=== PATIENT | male | born 1935 ===

== ENCOUNTER 2016-08-01 06:28 | Day surgery (SDC) | payer MEDICARE ==
--- NOTE | 2016-08-01 07:22 | C.PDOC ---
History Of Present Illness Patient is an 80 y/o M with hx of cholelithiasis, presenting with abdominal discomfort. He reports vague epigastric discomfort x months. He cannot identify any exacerbating or remitting factors. He reports that he was told to come here for further tests on his stomach but cannot provide additional information. Denies abdominal pain, chest pain, shortness of breath, nausea/ vomiting, diarrhea/constipation or urinary complaints. Chart review shows that patient has endoscopy scheduled today with Dr. Nolen. Time Seen by Provider: 08/01/16 07:09 Chief Complaint (Nursing): Abdominal Pain Past Medical History Vital Signs: Last Vital Signs Temp 98.2 F 08/01/16 06:38 Pulse 80 08/01/16 06:38 Resp 14 08/01/16 06:38 BP 152/83 H 08/01/16 06:38 Pulse Ox 97 08/01/16 07:27 Surgical History: Coronary Stent Family History: States: No Known Family Hx - Social History Hx Tobacco Use: No Hx Alcohol Use: No Hx Substance Use: No - Immunization History Hx Tetanus Toxoid Vaccination: No Hx Influenza Vaccination: No Hx Pneumococcal Vaccination: No Review Of Systems Constitutional: Negative for: Fever, Chills ENT: Negative for: Ear Pain Cardiovascular: Negative for: Chest Pain Respiratory: Negative for: Cough, Shortness of Breath, SOB with Excertion, Pleuritic Pain Gastrointestinal: Positive for: Other (abdominal discomfort x months). Negative for: Nausea, Vomiting, Abdominal Pain, Diarrhea, Constipation, Melena, Rectal Pain Genitourinary: Negative for: Dysuria, Frequency, Incontinence, Hematuria, Penile Discharge, Scrotal Pain, Rash, Penile Pain Musculoskeletal: Negative for: Neck Pain Skin: Negative for: Rash Neurological: Negative for: Weakness Psych: Negative for: Depression Physical Exam - Physical Exam Appears: Well, Non-toxic, No Acute Distress Skin: Normal Color, Warm, Dry Head: Atraumatic, Normacephalic Eye(s): bilateral: Normal Inspection, PERRL, EOMI Chest: Symmetrical, No Deformity, No Tenderness Cardiovascular: Rhythm Regular Respiratory: Normal Breath Sounds, No Rales, No Rhonchi, No Wheezing Gastrointestinal/Abdominal: Soft, No Tenderness, No Mass, No Distention Back: Normal Inspection, No CVA Tenderness Extremity: Normal ROM Neurological/Psych: Oriented x3 Gait: Steady ED Course And Treatment - Laboratory Results Result Diagrams: 08/01/16 07:36 08/01/16 07:36 O2 Sat by Pulse Oximetry: 97 Medical Decision Making Medical Decision Making: Patient presenting with abdominal discomfort x months. Non-tender on exam. Well appearing. EKG at triage shows NSR at 80bpm with normal intervals and no ST changes. Call placed to Dr. Nolen who reports that patient is scheduled for endoscopy today and was supposed to come to same day surgery. Requesting labs and NPO and patient sent to endoscopy. He reports that he will follow-up labs and cancel procedure for anything significant abnormality in blood work Disposition - Disposition Disposition: HOSPITALIZED Disposition Time: 07:20 Condition: GOOD - Clinical Impression Clinical Impression: Epigastric pain
[2016-08-01 07:41] LABS: BASO # 0.1 K/uL (0.0-0.2); BASO % 0.9 % (0.0-2.0); EOS # 0.2 K/uL (0.0-0.7); EOS % 3.9 % (0.0-4.0); HEMATOCRIT 41.8 % (35.0-51.0); LYMPH # 1.4 K/uL (1.0-4.3); LYMPH % 24.5 % (20.0-40.0); MEAN CORPUSCULAR HEMOGLOBIN 30.7 pg (27.0-31.0); MEAN CORPUSCULAR HGB CONC 34.1 g/dL (33.0-37.0); MEAN PLATELET VOLUME 9.7 fL (7.2-11.7); MONO # 0.4 K/uL (0.0-0.8); MONO % 6.9 % (0.0-10.0); NRBC % 0.1 % (0.0-2.0); RED CELL DISTRIBUTION WIDTH 13.6 % (11.5-14.5); WHITE BLOOD COUNT 5.8 K/uL (4.8-10.8)
[2016-08-01 07:48] LABS: CHLORIDE 102 mmol/L (98-107); POTASSIUM 3.6 mmol/L (3.6-5.2); SODIUM 140 mmol/L (132-148)
[2016-08-01 07:50] LABS: ALB/GLOB RATIO 1.2 (1.0-2.1); ALKALINE PHOSPHATASE 72 U/L (38-126); AST/SGOT 18 U/L (17-59); BILIRUBIN,TOTAL 1.2 mg/dL (0.2-1.3); CARBON DIOXIDE 29 mmol/L (22-30); GFR AFRICAN-AMERICAN > 60; TOTAL PROTEIN 7.5 g/dL (6.3-8.3)
[2016-08-01 07:51] LABS: ALT/SGPT 21 U/L (21-72); BLOOD UREA NITROGEN 16 mg/dL (9-20); CALCIUM 9.1 mg/dl (8.6-10.4); GLUCOSE,RANDOM 90 mg/dL (75-110); PHOSPHOROUS 2.8 mg/dL (2.5-4.5)
[2016-08-01] MEDS ORDERED: Etomidate 20 mg/10ml Inj IV ONE (09:48)
[2016-08-01] MEDS ORDERED: Propofol 10 mg/ml Inj (20 ML) ONE (09:48)
[2016-08-01] MEDS ORDERED: Lidocaine Hydrochloride 5 ML INJ ONE (09:48)
--- NOTE | 2016-08-01 09:53 | CP.SDSHP ---
Same Day Surgery H & P - History Proposed Procedure: EGD, colonoscopy Pre-Op Diagnosis: loss of appetite, screening - Allergies Allergies: Allergies No Known Allergies Allergy (Verified 08/01/16 09:03) - Physical Exam General Appearance: NAD Vital Signs: Vital Signs 08/01/16 08/01/16 08/01/16 06:38 07:55 08:02 Temperature 98.2 F 98.0 F Pulse Rate 80 70 Respiratory 14 20 Rate Blood Pressure 152/83 H 163/87 H O2 Sat by Pulse 97 98 97 Oximetry 08/01/16 08/01/16 08:30 09:44 Temperature 97 F L 97 F L Pulse Rate 73 73 Respiratory 19 19 Rate Blood Pressure 163/86 H 163/86 H O2 Sat by Pulse 99 99 Oximetry Mental Status: Alert & Oriented x3 Neuro: WNL Heart: WNL Lungs: WNL GI: WNL - {Optional Preform as Required} Abdomen: WNL - Impression Pt. Evaluated Today:Candidate for Anesthesia & Procedure: Yes - Date & Time Date: 08/01/16 Time: 09:53 Short Stay Discharge - Short Stay Discharge Admitting Diagnosis/Reason for Visit: EPIGASTRIC DISCONFORT Disposition: HOME/ ROUTINE
[2016-08-01 11:26] VITALS: BP 146/82; PULSE 60; RESP 15; TEMP 97.1; O2SAT 100
--- NOTE | 2016-08-02 17:13 | CARD ---
APPROVED REPORT EKG Measurement Heart [id number] [id number] <Conclusion> Normal sinus rhythm Normal ECG
== END 2016-08-01 11:20 | disposition home or self-care (01) ==
LOC: C.ER 06:28 → C.ENDO 06:28
PROVIDERS: ATTEND Internal Medicine Gastroenterology
DX: K29.80 Duodenitis without bleeding (principal); K29.70 Gastritis, unspecified, without bleeding; B96.81 Helicobacter pylori [H. pylori] as the cause of diseases classified elsewhere
CPT/HCPCS: 43239; 45330; 80053; 82948; 83690; 83735; 84100; 85025; 85610; 85730; 86850; 86900; 88305; 93005; J2001; J2704

== ENCOUNTER 2017-05-21 19:30 | Emergency (ER) | payer MEDICARE ==
[2017-05-21 20:02] VITALS: RESP 20
[2017-05-21] MEDS ORDERED: Sodium Chloride 0.9% 1,000 ML IV ONE (20:07)
--- NOTE | 2017-05-21 20:07 | C.PDOC ---
History Of Present Illness 81 year old male brought in to the ER by daughter due to refusing to take medications, eat, and drink. Patient has a history of Alzheimers disease. Currently complaining of abdominal discomfort for the past 3 days. No fever, chills, nausea, or vomiting. PMD: Non-CPH Provider Time Seen by Provider: 05/21/17 20:06 Chief Complaint (Nursing): Abdominal Pain History Per: Patient History/Exam Limitations: clinical condition (dementia) Onset/Duration Of Symptoms: Days (x3) Current Symptoms Are (Timing): Still Present Severity: Mild Pain Scale Rating Of: 4 Location Of Pain/Discomfort: Diffuse Radiation Of Pain To:: None Associated Symptoms: denies: Fever, Chills, Nausea, Vomiting Exacerbating Factors: None Alleviating Factors: None Recent travel outside of the [place]: No Additional History Per: Family (daughter) Past Medical History Reviewed: Historical Data, Nursing Documentation, Vital Signs Vital Signs: Last Vital Signs Temp 99.3 F 05/21/17 19:57 Pulse 76 05/21/17 19:57 Resp 20 05/21/17 19:57 BP 147/74 05/21/17 19:57 Pulse Ox 97 05/21/17 21:09 - Medical History PMH: Alzheimer's Disease Surgical History: Coronary Stent Family History: States: No Known Family Hx - Social History Hx Tobacco Use: No Hx Alcohol Use: No Hx Substance Use: No - Immunization History Hx Tetanus Toxoid Vaccination: No Hx Influenza Vaccination: No Hx Pneumococcal Vaccination: No Review Of Systems Constitutional: Negative for: Fever, Chills Gastrointestinal: Positive for: Abdominal Pain, Other (refusing to eat/drink). Negative for: Nausea, Vomiting Physical Exam - Physical Exam Appears: Non-toxic, No Acute Distress Skin: Warm, Dry Head: Normacephalic Eye(s): bilateral: Normal Inspection Oral Mucosa: Dry Chest: Symmetrical Cardiovascular: Rhythm Regular Respiratory: No Rales, No Rhonchi, No Wheezing Gastrointestinal/Abdominal: Soft, Tenderness (Mild mid-epigastric tenderness), No Guarding, No Rebound Back: Normal Inspection Extremity: Normal ROM Extremity: Bilateral: Atraumatic Neurological/Psych: Other (Orientedx2) Gait: Steady ED Course And Treatment - Laboratory Results Result Diagrams: 05/21/17 20:24 05/21/17 20:24 O2 Sat by Pulse Oximetry: 97 (RA) Pulse Ox Interpretation: Normal Progress Note: Ordered labs, EKG, and CT abd/pelvis. Patient given 20 mg Pepcid and started on IV fluids. Reevaluation Time: 00:06 Reassessment Condition: Improved Disposition Counseled Patient/Family Regarding: Studies Performed, Diagnosis, Need For Followup, Rx Given - Disposition Referrals: [facility] [Outside] [facility] [Outside] Disposition: HOME/ ROUTINE Disposition Time: 20:07 Condition: FAIR Prescriptions: Ciprofloxacin [Cipro] 1 tab PO BID #14 tab Instructions: Urinary Tract Infection, Adult (DC) Forms: [employer] (Macedonian) Print Language: MOROCCAN - Clinical Impression Clinical Impression: Abdominal pain, UTI (urinary tract infection) - Scribe Statement The provider has reviewed the documentation as recorded by the Scribe (Damari Ga) Provider Attestation: All medical record entries made by the Scribe were at my direction and personally dictated by me. I have reviewed the chart and agree that the record accurately reflects my personal performance of the history, physical exam, medical decision making, and the department course for this patient. I have also personally directed, reviewed, and agree with the discharge instructions and disposition.
[2017-05-21] MEDS ORDERED: Sodium Chloride 0.9% 1,000 ML ONE (20:25)
[2017-05-21 20:28] LABS: BASO # 0.1 K/uL (0.0-0.2); BASO % 0.4 % (0.0-2.0); EOS % 0.2 % (0.0-4.0); HEMOGLOBIN 13.5 g/dL (12.0-18.0); LYMPH # 1.3 K/uL (1.0-4.3); LYMPH % 9.2 % (20.0-40.0); MEAN CORPUSCULAR HEMOGLOBIN 30.3 pg (27.0-31.0); MEAN CORPUSCULAR HGB CONC 34.6 g/dL (33.0-37.0); MEAN PLATELET VOLUME 9.3 fL (7.2-11.7); MONO # 0.7 K/uL (0.0-0.8); MONO % 4.8 % (0.0-10.0); NEUT # 11.9 K/uL (1.8-7.0); NEUT % 85.4 % (50.0-75.0); PLATELET COUNT 195 K/uL (130-400); RBC 4.47 Mil/uL (4.40-5.90); RED CELL DISTRIBUTION WIDTH 13.5 % (11.5-14.5)
[2017-05-21 20:29] LABS: MEAN CELL VOLUME 87.5 fL (80.0-94.0); WHITE BLOOD COUNT 13.9 K/uL (4.8-10.8)
[2017-05-21 20:36] LABS: INR 1.1; PROTHROMBIN TIME 12.1 SECONDS (9.7-12.2)
[2017-05-21 20:47] LABS: ALB/GLOB RATIO 0.9 (1.0-2.1); ALBUMIN 3.7 g/dL (3.5-5.0); ALT/SGPT 213 U/L (21-72); AST/SGOT 114 U/L (17-59); BLOOD UREA NITROGEN 17 mg/dL (9-20); CALCIUM 9.2 mg/dl (8.6-10.4); GFR AFRICAN-AMERICAN > 60; GFR NON-AFRICAN AMERICAN > 60; LIPASE 68 U/L (23-300)
[2017-05-21] MEDS ORDERED: Iodixanol 320 MG/ML 100 ML BOTTLE IV ONE (21:39)
[2017-05-21 21:48] LABS: BANDS 4 % (0-2); LYMPHOCYTE 9 % (20-40); MONOCYTE 8 % (0-10); NEUTROPHIL 79 % (50-75); PLATELET ESTIMATE NORMAL (NORMAL); TOTAL CELLS COUNTED 100
[2017-05-21 21:49] LABS: HYPOCHROMIC SLIGHT
[2017-05-21 22:49] LABS: SQUAMOUS EPITHIAL 2 /hpf (0-5); URINE BACTERIA MOD (<OCC); URINE BILIRUBIN NEGATIVE (NEGATIVE); URINE BLOOD 1+ (NEGATIVE); URINE CLARITY Hazy (Clear); URINE COLOR Amber (YELLOW); URINE GLUCOSE (UA) NORMAL (Normal); URINE LEUKOCYTE ESTERASE 3+ Leu/uL (Negative); URINE NITRATE POSITIVE (NEGATIVE); URINE PROTEIN 1+ mg/dL (NEGATIVE); WBC CLUMPS FEW /hpf
[2017-05-21] MEDS ORDERED: Piperacillin/Tazobact 3.375 gm 100 ML IVPB STA (23:07)
[2017-05-21] MEDS ORDERED: Piperacillin/Tazobact 3.375 gm 100 ML IVPB ONE (23:21)
--- NOTE | 2017-05-21 23:28 | CT ---
EXAM: CT Abdomen and Pelvis With Intravenous Contrast EXAM DATE/TIME: 05/21/2017 9:00 PM CLINICAL HISTORY: 81 years old, male; Pain; Abdominal pain; Generalized; Additional info: Abd pain, elevated liver enzymes TECHNIQUE: Axial computed tomography images of the abdomen and pelvis with intravenous contrast. All CT scans at this facility use one or more dose reduction techniques, viz.: automated exposure control; ma/kV adjustment per patient size (including targeted exams where dose is matched to indication; i.e. head); or iterative reconstruction technique. Coronal and sagittal reformatted images were created and reviewed. CONTRAST: 100 mL of visipaque 320 administered intravenously. COMPARISON: CT - ABDOMEN,PELVIS W/WO CONTRAST 2013-11-25 09:58 FINDINGS: Cholecystectomy clips are present. The liver is normal. The spleen is normal. The pancreas is normal. There are stable bilateral parapelvic renal cysts better characterized on prior where delayed views were obtained. There is an 8 mm hypoattenuating left renal lesion probable small cyst. The posterior urinary bladder wall is thickened, irregular, and trabeculated similar to prior study although better evaluated on prior as delayed views were obtained. Left sided colonic diverticuli are noted. No evidence of diverticulitis. A normal appendix is identified axial images 93 through 103 coronal images 46 through 49. No aortic aneurysm or dissection. There are degenerative changes in the osseous structures. IMPRESSION: No acute findings. Chronic thickened trabecular urinary bladder wall.
[2017-05-22 00:14] VITALS: BP 134/70; PULSE 69; TEMP 98.7; O2SAT 98
--- NOTE | 2017-05-23 13:22 | CARD ---
APPROVED REPORT EKG Measurement Heart [id number] MD [id number] <Conclusion> Normal sinus rhythm Normal ECG
== END 2017-05-22 00:21 | disposition home or self-care (01) ==
LOC: C.ER 19:30
DX: N39.0 Urinary tract infection, site not specified (principal); R10.13 Epigastric pain
CPT/HCPCS: 74177; 80053; 81001; 82948; 83690; 85025; 85610; 85730; 93005; 96361; 96365; 96375; 99285; J2543; J7040; Q9967

== ENCOUNTER 2018-08-11 14:48 | Emergency (ER) | payer MEDICARE ==
[2018-08-11 15:04] VITALS: BP 173/89; PULSE 83; RESP 20; TEMP 98.4; O2SAT 100
--- NOTE | 2018-08-11 15:34 | C.PDOC ---
History Of Present Illness 82 y/o male brought to ER by EMS for evaluation after he was found wandering in the streets.As per EMS, patient appeared to be confused. Patient denies having any active physical complaints at this time. Past medical records show that patient has history of dementia. Of note, HPI is limited because of patient's clinical condition. Time Seen by Provider: 08/11/18 15:06 Chief Complaint (Nursing): Altered Mental Status History Per: Patient, EMS History/Exam Limitations: Clinical Condition Past Medical History Reviewed: Historical Data, Nursing Documentation, Vital Signs Vital Signs: Last Vital Signs Temp 98.4 F 08/11/18 15:01 Pulse 83 08/11/18 15:01 Resp 20 08/11/18 15:01 BP 173/89 H 08/11/18 15:01 Pulse Ox 100 08/11/18 15:01 Primary Care Provider: FAMILY PROVIDER,NO - Medical History PMH: Alzheimer's Disease, HTN Surgical History: Coronary Stent Family History: States: No Known Family Hx - Social History Hx Tobacco Use: No Hx Alcohol Use: No Hx Substance Use: No - Immunization History Hx Tetanus Toxoid Vaccination: No Hx Influenza Vaccination: No Hx Pneumococcal Vaccination: No Review Of Systems Review Of Systems: ROS cannot be obtained secondary to pt's inabilty to answer questions. Physical Exam - Physical Exam Appears: No Acute Distress, Other (pt is awake,alert, and reading newspaper) Skin: Normal Color, Warm, Dry Head: Atraumatic, Normacephalic Eye(s): bilateral: Normal Inspection Nose: Normal Oral Mucosa: Moist Neck: Supple Chest: Symmetrical Cardiovascular: Rhythm Regular Respiratory: Normal Breath Sounds, No Rales, No Rhonchi, No Wheezing Gastrointestinal/Abdominal: Normal Exam, Soft, No Tenderness, No Guarding, No Rebound Neurological/Psych: Normal Speech, Other (awake,alert) ED Course And Treatment ECG: Interpreted By Me, Viewed By Me Interpretation Of ECG: NSR with no ST/T wave changes and poor trace due to secondary artifact Rate From EC O2 Sat by Pulse Oximetry: 100 (RA) Pulse Ox Interpretation: Normal - Other Rad CXR X-Ray: Viewed By Me, Read By Radiologist Interpretation: Date of service: 08/11/2018. PROCEDURE: CHEST RADIOGRAPH, 1 VIEW. HISTORY: chest pain. COMPARISON: None available. FINDINGS: LUNGS: Clear. PLEURA: No pneumothorax or pleural fluid seen. CARDIOVASCULAR: No aortic atherosclerotic calcification present. Normal. OSSEOUS STRUCTURES: No significant abnormalities. VISUALIZED UPPER ABDOMEN: Normal. OTHER FINDINGS: None. IMPRESSION: No active disease. Medical Decision Making Medical Decision Making: Plan: --Labs --UA --CXR Updates: Numerous calls were placed to family member using previous records. The numbers are not working. police went to pts home and found daughter, who presents to er. states pt at baseline. request pysch consult as pt reported long standing h/o o fdepression. seen by rack worker nico in er. cleared for dc. daughter not poa cannot transfer to [place] pt at [facility], eating [facility]. walking around er in [place]. Disposition - Disposition Disposition: HOME/ ROUTINE Disposition Time: 17:00 Condition: GOOD Additional Instructions: return to er with worsening. Instructions: Dementia (Including Alzheimer Disease) Forms: [email or web address] (Yoruba) - Clinical Impression Clinical Impression: Dementia - Scribe Statement The provider has reviewed the documentation as recorded by the Augustinibe [place] Ragsdale Provider Attestation: All medical record entries made by the Scribe were at my direction and personally dictated by me. I have reviewed the chart and agree that the record accurately reflects my personal performance of the history, physical exam, medical decision making, and the department course for this patient. I have also personally directed, reviewed, and agree with the discharge instructions and disposition.
--- NOTE | 2018-08-11 16:11 | RAD ---
Date of service: 08/11/2018 PROCEDURE: CHEST RADIOGRAPH, 1 VIEW HISTORY: chest pain COMPARISON: None available. FINDINGS: LUNGS: Clear. PLEURA: No pneumothorax or pleural fluid seen. CARDIOVASCULAR: No aortic atherosclerotic calcification present. Normal. OSSEOUS STRUCTURES: No significant abnormalities. VISUALIZED UPPER ABDOMEN: Normal. OTHER FINDINGS: None. IMPRESSION: No active disease.
--- NOTE | 2018-08-12 12:00 | CARD ---
APPROVED REPORT Date of service: 08/11/2018 EKG Measurement Heart [id number] NM [id number] [id number] <Conclusion> Normal sinus rhythm Possible Left atrial enlargement Borderline ECG
== END 2018-08-11 17:33 | disposition home or self-care (01) ==
LOC: C.ER 14:48
DX: F03.90 Unspecified dementia, unspecified severity, without behavioral disturbance, psychotic disturbance, mood disturbance, and anxiety (principal)